=== PATIENT | male | born 1995 | race Caucasian/White ===

== ENCOUNTER → 2025-02-27 11:33 | Outpatient (REF) | payer OTHER, SELFPAY ==
--- NOTE | 2025-02-27 11:44 | ECG_ITS ---
Test Reason : f40.1 f41.1 Blood Pressure : */* mmHG Vent. Rate : 81 BPM Atrial Rate : 81 BPM P-R Int : 138 ms QRS Dur : 92 ms QT Int : 354 ms P-R-T Axes : 42 -10 33 degrees QTcB Int : 411 ms Normal sinus rhythm Normal ECG No previous ECGs available Referred By: Dustin Whitfield Electronically Signed By: ADARSH CAAL MD
--- OUTSIDE RECORDS SUMMARY | 2025-02-27 13:41 | XMS_ITS | Clinical Summary ---
Author Organization [facility] Address [address] [place] [address] Care Team Providers Care Quality Checker Name Role Phone Shelbi Garcia MD Primary Care Provider [phone] Medical History Medical History Date Comments Closed fracture of unspecifi ed part of radius (alone) 12/20 DX:Closed fracture of unspec ified part of radius (alone) Unspecified asthma, with exacerbation DX:Unspecified asthma, with exacerbation; COMMENT: no prob in years- noted at PE 10-27-08 Contact dermatitis and other eczema, due to unspecified cause DX:Contact dermatitis and ot her eczema, due to unspecified cause Varicella without mention of complication age 2 DX:Varicella without mention of complication Historical Medical DX DX:Other b ehavioral problems Unspecified family circumstance , DX:Unspecified family circumstance Expressive language disorder DX: Expressive language disorder Allergic rhinitis due to pollen DX:Allergic rhinitis due to pollen Fracture of radius and ulna 08-26-07 DX:F racture of radius and ulna ADHD (attention deficit hype ractivity disorder) DX:ADHD (attention deficit hyperactivity disorder) Development delay DX:Development delay Family History Medical History Relation Name Comments Allergies Father eviromental Diabetes Other 1 both sides Other: heart Other 2 PGGF, PGGM Colon cancer Other 3 PGGF Relation Name Status Comments Brother Alive Matias- 1 Father Alive Matias- 2 Mother Alive Danni- Other 1 Other 2 Other 3 Other 4 Social History Tobacco Use Types Packs/Day Years Used Date Smoking Tobacco: Passive Smo ke Exposure - Never Smoker Alcohol Use Standard Drinks/Week Comments No 0 (1 standard drink = 0.6 oz pur e alcohol) Sex and Gender Information Value Date Recorded Sex Assigned at Not on file Legal Sex Male 1:03 AM EST Gender Identity Not on file Sexual Orientation Not on file Obstetrics History Plan of Treatment Health Maintenance Due Date Last Done Comments Depression Screening 12/15/2023 HIV Screening 12/15/2023 Hepatitis C Screening 12/15/2023 Social Influencers of Health Screening 12/15/2023 COVID-19 Vaccine ( season) 2024 Influenza Vaccine (Season Ended) 2025 10/27/2013, 10/21/2011, 10/04/2010, Additional history exists DTaP,Tdap,and Td Vaccines (8 - Td or Tdap) 10/05/2030 10/05/2020, 08/18/2006, 06/04/1998, Additional history exists HIB Vaccines Completed 10/21/1994, 04/1994, 03/13/1994, Additional history exists MMR Vaccines Completed 08/01/1997, 10/21/1994 IPV Vaccines Completed 11/12/1998, 04/1994, 03/13/1994, Additional history exists Hepatitis B Vaccines Completed 03/13/2004, 1993, 1993 Meningococcal ACWY Vaccine Aged Out 10/27/2008 N o longer eligible based on patient's age to complete this topic HPV Vaccines Aged Out No longer eligi ble based on patient's age to complete this topic Hepatitis A Vaccines Aged Out No long er eligible based on patient's age to complete this topic Meningococcal B Vaccine Aged Out No l onger eligible based on patient's age to complete this topic Pneumococcal Vaccine: Pediatrics (0 to 5 Years) and At-Risk Patients (6 to 64 Years) Aged Out No longer eligible based on patient's age to complete this topic RSV Immunization Patients Under 20 months Aged Out No longer eligible based on patient's age to complete this topic Varicella Vaccines Aged Out No longer eligible based on patient's age to complete this topic Care Teams Quality Checker Relationship Specialty Start Date End Date Shelbi Garcia MD [address] [address] PCP - General 06/23/1996
== END ==
LOC: HO.CARD 11:33
PROVIDERS: Visit Provider Nurse Practitioner Psychiatric/Mental Health
DX: F41.1 Generalized anxiety disorder (principal); F90.1 Attention-deficit hyperactivity disorder, predominantly hyperactive type
CPT/HCPCS: 93005

== ENCOUNTER → 2025-02-27 11:44 | Outpatient (BNV) | payer OTHER, SELFPAY | PROVIDERS: Visit Provider Internal Medicine Cardiovascular Disease | DX: F40.10 Social phobia, unspecified (principal); F41.1 Generalized anxiety disorder | CPT/HCPCS: 93010 ==